=== PATIENT | female | born 1970 | race Caucasian/White ===

== ENCOUNTER → 2023-07-25 13:43 | Outpatient (REF) | payer BC, OTHER, SELFPAY | LOC: WDC 13:43 | PROVIDERS: ATTENDING PHYSICIAN Registered Nurse; FAMILY PHYSICIAN Physician Assistant Medical | DX: N63.10 Unspecified lump in the right breast, unspecified quadrant (principal); N63.13 Unspecified lump in the right breast, lower outer quadrant | CPT/HCPCS: 76642 ==

== ENCOUNTER → 2023-09-24 08:18 | Outpatient (REF) | payer OTHER, SELFPAY ==
[2023-09-24 11:37] LABS: % Basophils 0.6 % (0-2); % Eosinophils 1.9 % (0-6); % Immature Granulocytes 0.4 % (0-0.5); % Lymphocytes 35.4 % (20.5-51.1); % Monocytes 5.6 % (1.7-9.3); % Neutrophils 56.1 % (42.2-75.2); Absolute Eosinophils 0.1 10^3/uL (0-0.7); Absolute Lymphocytes 1.7 10^3/uL (1.2-3.4); Absolute Monocytes 0.3 10^3/uL (0.1-0.6); Absolute Neutrophils 2.6 10^3/uL (1.4-6.5); Hematocrit 38.1 % (37.0-47.0); Hemoglobin 12.8 g/dL (12.0-16.0); Mean Corp Hgb Conc. 33.6 g/dL (33.0-37.0); Mean Corpuscular Hgb 30.1 pg (27.0-31.0); Mean Corpuscular Volume 89.6 fL (81.0-99.0); Mean Platelet Volume 10.2 fL (7.4-10.4); Nucleated Red Blood Cells % 0 %; Platelet Count 208 10^3/uL (130-400); Red Blood Cell Count 4.25 10^6/uL (4.20-5.40); Red Cell Dist. Width 12.1 % (11.5-14.5); White Blood Cell Count 4.7 10^3/uL (4.8-10.8)
[2023-09-24 12:17] LABS: ALT (SGPT) 23 U/L (0-35); AST (SGOT) 26 U/L (14-36); Albumin 4.6 g/dl (3.5-5.0); Alkaline Phosphatase 59 U/L (38-126); Blood Urea Nitrogen 13 mg/dl (7-17); Calcium 9.5 mg/dl (8.4-10.2); Carbon Dioxide 26 mmol/L (22-30); Chloride 103 mmol/L (98-107); Glucose 91 mg/dl (70-99); LDH 158 U/L (120-246); Potassium 4.6 mmol/L (3.5-5.1); Sodium 138 mmol/L (135-145); Total Bilirubin 1.5 mg/dl (0.2-1.3); eGFR > 60.00
== END ==
LOC: RAD 08:18
PROVIDERS: ATTENDING PHYSICIAN Internal Medicine Hematology & Oncology; FAMILY PHYSICIAN Physician Assistant Medical
DX: E80.7 Disorder of bilirubin metabolism, unspecified (principal); C50.512 Malignant neoplasm of lower-outer quadrant of left female breast; Z79.811 Long term (current) use of aromatase inhibitors; C69.90 Malignant neoplasm of unspecified site of unspecified eye
CPT/HCPCS: 36415; 71260; 80053; 83615; 85025; Q9967

== ENCOUNTER → 2023-09-24 08:25 | Outpatient (REF) | payer OTHER, SELFPAY | LOC: MRI 3T 08:25 | PROVIDERS: ATTENDING PHYSICIAN Internal Medicine Hematology & Oncology; FAMILY PHYSICIAN Physician Assistant Medical | DX: E80.7 Disorder of bilirubin metabolism, unspecified (principal); C50.512 Malignant neoplasm of lower-outer quadrant of left female breast; Z79.811 Long term (current) use of aromatase inhibitors; C69.90 Malignant neoplasm of unspecified site of unspecified eye | CPT/HCPCS: 36415; 74183; A9581 ==

== ENCOUNTER → 2024-04-16 09:00 | Outpatient (REF) | payer BC, SELFPAY | LOC: RAD 09:00 | PROVIDERS: ATTENDING PHYSICIAN Internal Medicine Hematology & Oncology | DX: E80.7 Disorder of bilirubin metabolism, unspecified (principal); C50.512 Malignant neoplasm of lower-outer quadrant of left female breast; Z79.811 Long term (current) use of aromatase inhibitors; C69.90 Malignant neoplasm of unspecified site of unspecified eye | CPT/HCPCS: 73502 ==

== ENCOUNTER → 2024-10-10 07:26 | Outpatient (REF) | payer BC, SELFPAY | LOC: HWRAD 07:26 | PROVIDERS: ATTENDING PHYSICIAN Internal Medicine Hematology & Oncology; FAMILY PHYSICIAN Physician Assistant Medical | DX: C50.512 Malignant neoplasm of lower-outer quadrant of left female breast (principal); E80.7 Disorder of bilirubin metabolism, unspecified; Z79.811 Long term (current) use of aromatase inhibitors; C69.90 Malignant neoplasm of unspecified site of unspecified eye | CPT/HCPCS: 77080 ==

== ENCOUNTER → 2024-10-13 07:42 | Outpatient (REF) | payer BC, SELFPAY ==
[2024-10-13 08:48] LABS: Hematocrit 39.0 % (37.0-47.0); Hemoglobin 12.8 g/dL (12.0-16.0); Mean Corp Hgb Conc. 32.8 g/dL (33.0-37.0); Mean Corpuscular Volume 93.5 fL (81.0-99.0); Nucleated Red Blood Cells % 0 %; Platelet Count 171 10^3/uL (130-400); Red Cell Dist. Width 12.5 % (11.5-14.5)
[2024-10-13 09:41] LABS: ALT (SGPT) 27 U/L (0-35); AST (SGOT) 25 U/L (14-36); Albumin 4.6 g/dl (3.5-5.0); Alkaline Phosphatase 53 U/L (38-126); Blood Urea Nitrogen 16 mg/dl (7-17); Calcium 9.4 mg/dl (8.4-10.2); Carbon Dioxide 28 mmol/L (22-30); Chloride 107 mmol/L (98-107); Glucose 89 mg/dl (70-99); LDH 141 U/L (120-246); Potassium 5.0 mmol/L (3.5-5.1); Sodium 140 mmol/L (135-145); Total Protein 7.4 g/dl (6.3-8.2); eGFR > 60.00
== END ==
LOC: PAVMRI 07:42
PROVIDERS: ATTENDING PHYSICIAN Internal Medicine Hematology & Oncology; FAMILY PHYSICIAN Physician Assistant Medical
DX: E80.7 Disorder of bilirubin metabolism, unspecified (principal); C50.512 Malignant neoplasm of lower-outer quadrant of left female breast; Z79.811 Long term (current) use of aromatase inhibitors; C69.90 Malignant neoplasm of unspecified site of unspecified eye
CPT/HCPCS: 36415; 71260; 74183; 80053; 83615; 85025; A9581; Q9967

== ENCOUNTER → 2024-12-18 07:36 | Outpatient (REF) | payer BC, SELFPAY ==
[2024-12-18 09:29] LABS: Blood Urea Nitrogen 22 mg/dl (7-17)
== END ==
LOC: RAD 07:36
PROVIDERS: ATTENDING PHYSICIAN Internal Medicine Hematology & Oncology; FAMILY PHYSICIAN Physician Assistant Medical
DX: C69.90 Malignant neoplasm of unspecified site of unspecified eye (principal); E80.7 Disorder of bilirubin metabolism, unspecified; C50.512 Malignant neoplasm of lower-outer quadrant of left female breast
CPT/HCPCS: 36415; 71260; 82565; 84520; Q9967